=== PATIENT | female | born 1985 | race Caucasian/White ===

== ENCOUNTER 2020-06-30 04:52 | Inpatient (IN) | payer BC, OTHER ==
[2020-06-30] MEDS ORDERED: NS / Oxytocin 40 units/1000ml 1,000 ML IV PRN (05:30)
[2020-06-30] MEDS ORDERED: Ondansetron PF 4 MG/2 ML Vial IVP PRN ×4 (05:30→12:27)
[2020-06-30] MEDS ORDERED: Ibuprofen 800 MG TAB PO PRN (05:30)
[2020-06-30] MEDS ORDERED: Lactated Ringer's 1,000 ML IV SCH ×2 (05:30)
[2020-06-30] MEDS ORDERED: Lidocaine 1% (PF) 30 ML VIAL SC PRN (05:30)
[2020-06-30] MEDS ORDERED: Butorphanol Tartrate 1 MG/ML VIAL SLOW IVP PRN (05:30)
[2020-06-30] MEDS ORDERED: HYDROcodone/Acetaminophen 5/325 mg Tablet PO PRN ×3 (05:30→12:27)
[2020-06-30] MEDS ORDERED: hydrALAZINE 20 MG/ML VIAL SLOW IVP PRN ×2 (05:30→12:27)
[2020-06-30] MEDS ORDERED: Fentanyl 4 mcg/Bup 0.1% Cadd 100 ML ONE (05:54)
[2020-06-30 06:10] VITALS: BMI 27.1
[2020-06-30 06:10] LABS: Hemoglobin 11.9 g/dL (12.0-16.0); Mean Corpuscular HGB CONC 33.8 g/dL (32.0-36.0); Mean Corpuscular Hemoglobin 29.5 pg (27.0-31.0); Mean Corpuscular Volume 87.2 fL (78.0-98.0); Mean Platelet Volume 8.9 fL (7.4-10.4); Platelet Count 255 thou/uL (130-400); RBC Distribution Width 11.8 % (11.5-14.5); Red Blood Cell (RBC) Count 4.04 mill/uL (4.20-5.40); White Blood Cell (WBC) Count 10.3 thou/uL (4.8-10.8)
[2020-06-30] MEDS ORDERED: FLU VACC QS2020-21(6MOS UP)/PF 60 MCG/0.5 ML SYRINGE IM ONE (06:15)
[2020-06-30 06:43] LABS: HBSAg Index 0.13 S/CO (0-0.99); Hep B Surf Ag Non-Reactive S/CO (NonReactive)
[2020-06-30] MEDS ORDERED: Naloxone HCl 0.4 mg/ml Vial IVP PRN ×2 (06:43)
[2020-06-30] MEDS ORDERED: Acetaminophen 325 MG TAB PO PRN (06:43)
[2020-06-30] MEDS ORDERED: Lactated Ringer's 500 ML IV PRN (06:43)
[2020-06-30] MEDS ORDERED: diphenhydrAMINE 25 MG CAP PO PRN ×2 (06:43→12:27)
[2020-06-30] MEDS ORDERED: diphenhydrAMINE 50 MG/ML VIAL IM PRN (06:43)
[2020-06-30] MEDS ORDERED: Naloxone HCl 0.4 mg/ml Vial IV PRN (06:43)
[2020-06-30] MEDS ORDERED: Promethazine HCl 25 MG/ML VIAL IM PRN ×2 (06:43)
[2020-06-30] MEDS ORDERED: diphenhydrAMINE 50 MG/ML VIAL IVP PRN ×2 (06:43)
[2020-06-30] MEDS ORDERED: Zolpidem Tartrate 5 MG TAB PO PRN (06:43)
[2020-06-30] MEDS ORDERED: EPHEDRINE 25 MG/5 ML SYRINGE SLOW IVP PRN (06:43)
[2020-06-30] MEDS ORDERED: Fentanyl 4 mcg/Bupivacaine 0.1% Cassette 100 ML EPIDURAL SCH (06:45)
[2020-06-30] MEDS ORDERED: Communication Order-Pharmacy FS SCH ×2 (06:45)
[2020-06-30] MEDS ORDERED: NS / Oxytocin 40 units/1000ml 1,000 ML ONE (07:27)
--- NOTE | 2020-06-30 08:06 | PDOC.LDHP ---
Labor and Delivery H&P Chief complaint: contractions HPI: 34yo at 38w2d by LMP c/w painful contractions. Current gestational age (weeks): 38 Due date: 07/12/20 Dating criteria: last menstrual period Grav: 3 Para: 2 Current complications: none Abnormal US findings: No Past Medical History: denies Current medications: pre- vitamins Previous surgical history: none Allergies/Adverse Reactions: Allergies Allergy/AdvReac Type Severity Reaction Status Date / Time No Known Allergies Allergy Verified 06/30/20 06:05 Social history: none - Physical Exam Vital signs reviewed and normal: yes General: NAD Heart: RRR Lungs: CTAB Abdomen: gravid Extremeties: no edema FHT: category 1 Finzel contractions every: 3min - Vaginal Exam cm dilated: 9 Effacement: 90% Station: -1 (arom clear) - OB Labs Blood type: B RH: positive Antibody Screen: negative HIV: negative RPR: negative HEPSAg: negative 1 hour GCT: negative GBS: negative Urine drug screen: negative Rubella: immune - Assessment L&D Assessment: term patient in labor - Plan Plan: admit to L&D, labor augmentation if indicated, informed consent obtained, anesthesia consult for pain management
[2020-06-30 09:52] LABS: Syphilis Antibody Nonreactive (Nonreactive); Syphilis Antibody Index 0.02 S/CO (<1.00 Non-Reactive)
--- NOTE | 2020-06-30 12:03 | PDOC.OPDEL ---
OB Operative/Delivery Note Delivery Dr/Surgeon: Annel Assist: n/a Pre-Delivery Diagnosis: active labor Procedure/Post Delivery Dx: spontaneous vaginal delivery Weeks gestation: 38 Anesthesia: epidural - Findings A Sex: male Weight: 8 lb - 1 min: 8 - 5 min: 9 - Additional Findings/Plan Placenta delivered: spontaneous Repaired Obstetrical Laceration: none Estimated blood loss: 200cc Post delivery plan: routine recovery
[2020-06-30] MEDS ORDERED: Bupivacaine 0.25% HCL 30 ML VIAL ONE (12:06)
[2020-06-30] MEDS ORDERED: Milk Of Magnesia 30 ML UDCUP PO PRN (12:27)
[2020-06-30] MEDS ORDERED: Adacel (T-DAP) 0.5 ML SYRINGE IM ONE (12:27)
[2020-06-30] MEDS ORDERED: Bisacodyl 10 MG SUPP PR PRN (12:27)
[2020-06-30] MEDS ORDERED: Lanolin Ointment 7 GM TUBE TOP PRN (12:27)
[2020-06-30] MEDS ORDERED: Benzocaine-Menthol 82.5 ML CAN TOP PRN (12:27)
[2020-06-30] MEDS ORDERED: Preparation H Ointment 28 GM TUBE PR PRN (12:27)
[2020-06-30] MEDS ORDERED: NS / Oxytocin 40 units/1000ml 1,000 ML IV SCH (12:27)
[2020-06-30 13:55] LABS: SARS-CoV-2 MS2 Positive; SARS-CoV-2 N Gene Negative; SARS-CoV-2 S Gene Negative; SARS-CoV-2 by NAA Not Detected (NotDetected); SARS-CoV-2 orf1ab Negative
[2020-06-30] MEDS: Ibuprofen 800 MG TAB PO SCH ×2 (14:31→21:30)
[2020-06-30] MEDS: Ferrous Sulfate 325 MG TAB PO SCH (16:39)
[2020-06-30] MEDS: Docusate Calcium (SURFAK) 240 MG CAP PO SCH (21:30)
[2020-07-01] MEDS: Ibuprofen 800 MG TAB PO SCH ×3 (06:02→21:07)
[2020-07-01] MEDS: Ferrous Sulfate 325 MG TAB PO SCH ×2 (08:46→16:50)
[2020-07-01] MEDS: Prenatal Vitamin 1 TAB PO SCH (08:51)
[2020-07-01] MEDS: Docusate Calcium (SURFAK) 240 MG CAP PO SCH ×2 (08:51→21:07)
--- NOTE | 2020-07-01 09:20 | PDOC.PP ---
Post Progress Note Post Day #: 1 PO intake tolerated: yes Flatus: yes Ambulation: yes Vital Signs (12 hours) Temp Pulse Resp BP Pulse Ox 07/01/20 08:11 97.5 F L 85 20 124/77 100 07/01/20 05:55 98.1 F 70 15 100/57 L 07/01/20 00:35 98.0 F 72 14 109/57 L Weight Weight 153 lb - Physical Examination General: NAD Respiratory: non-labored breathing Abdominal: no distention, appropriately TTP Fundus firm & at: umb Neurological: no gross focal deficits Psychiatric: normal affect Result Diagrams: 06/30/20 05:48 Additional Labs: Post Labs Hep Bs Antigen Non-Reactive S/CO (NonReactive) 06/30/20 05:48 Blood Type B POSITIVE 06/30/20 07:49 - Assessment/Plan PPD1 s/p TSVD VSSAF Doing well, lochia < menses Pain controlled Rh pos RImm Cont PP care, home tomorrow
--- NOTE | 2020-07-02 04:58 | PDOC.PP ---
Post Progress Note Post Day #: 2 Subjective: Feels good, desires home today if able as has other kids at home PO intake tolerated: yes Flatus: yes Ambulation: yes Vital Signs (12 hours) Temp Pulse Resp BP Pulse Ox 07/01/20 20:20 98.6 F 80 16 122/58 L 98 Weight Weight 153 lb Past vitals reviewed - Physical Examination General: NAD Respiratory: non-labored breathing Abdominal: lochia, no distention, appropriately TTP Extremities: negative homans (B) Skin: no rash Neurological: no gross focal deficits Psychiatric: A&Ox3, normal affect Result Diagrams: 06/30/20 05:48 Additional Labs: Post Labs Hep Bs Antigen Non-Reactive S/CO (NonReactive) 06/30/20 05:48 Blood Type B POSITIVE 06/30/20 07:49 (1) Vaginal delivery Code(s): O80 - ENCOUNTER FOR FULL-TERM UNCOMPLICATED DELIVERY Status: Acute - Assessment/Plan PPD2 ok for DC to home. Keep follow up. Cherelle hazel
[2020-07-02] MEDS: Ibuprofen 800 MG TAB PO SCH (05:08)
[2020-07-02 07:58] VITALS: BP 108/69; TEMP 97.6
[2020-07-02] MEDS: Prenatal Vitamin 1 TAB PO SCH (09:16)
[2020-07-02] MEDS: Docusate Calcium (SURFAK) 240 MG CAP PO SCH (09:16)
[2020-07-02] MEDS: Ferrous Sulfate 325 MG TAB PO SCH (09:18)
== END 2020-07-02 12:20 | disposition home or self-care (01) | DRG 807 ==
LOC: L&D/OP 04:52 → L&D 05:30 → 3SW 13:18
PROVIDERS: ADMIT Student in an Organized Health Care Education/Training Program; ATTEND Student in an Organized Health Care Education/Training Program
PROC: 10E0XZZ Delivery of Products of Conception, External Approach (ICD-10-PCS; principal; 2020-06-30)
PROC: 10907ZC Drainage of Amniotic Fluid, Therapeutic from Products of Conception, Via Natural or Artificial Opening (ICD-10-PCS; 2020-06-30)
DX: O80 Encounter for full-term uncomplicated delivery (principal); Z37.0 Single live birth; Z3A.38 38 weeks gestation of pregnancy; Z20.828 Contact with and (suspected) exposure to other viral communicable diseases
CPT/HCPCS: 36415; 85027; 86780; 86850; 86900; 86901; 87340; 87635; 99285; S0020; U0003